=== PATIENT | female | born 1985 | race Asian ===

== ENCOUNTER 2017-04-22 12:30 | Inpatient (IN) | payer MEDICAID ==
[~2017-04-22] VITALS: Ht 162.6 cm; Wt 70.5 kg
[2017-04-22 12:53] VITALS: Ht 162.6 cm; Wt 70.5 kg
[2017-04-22 12:55] VITALS: BP 122/76; PULSE 76; RESP 20
[2017-04-22] MEDS ORDERED: LACTATED RINGER'S 1,000 ML IV PRN (16:15)
[2017-04-22] MEDS ORDERED: MISOPROSTOL 200 MCG TAB PR PRN (16:30)
[2017-04-22] MEDS ORDERED: OXYTOCIN 30 UNITS/LR 500 ML IV PRN (16:30)
[2017-04-22] MEDS ORDERED: BUTORPHANOL 2 MG INJ IV PRN (16:30)
[2017-04-22] MEDS ORDERED: OXYTOCIN 30 UNITS/LR 500 ML IV SCH ×3 (16:30→21:35)
[2017-04-22] MEDS ORDERED: METHYLERGONOVINE 0.2 MG INJ IM PRN (16:30)
[2017-04-22] MEDS ORDERED: LIDOCAINE 1% (MPF) 30 ML INJ INJ PRN (16:30)
[2017-04-22] MEDS ORDERED: CARBOPROST 250 MCG INJ IM PRN (16:30)
[2017-04-22] MEDS ORDERED: MINERAL OIL LIGHT 10 ML VIAL TOP ONE (16:30)
[2017-04-22] MEDS ORDERED: IBUPROFEN 600 MG TAB PO PRN (16:30)
[2017-04-22] MEDS: LACTATED RINGER'S 1,000 ML IV SCH ×2 (16:46→22:15)
--- NOTE | 2017-04-22 16:56 | RADRPT ---
PROCEDURE: US OB biophysical profile. CLINICAL INDICATION: decreased movements TECHNIQUE: Multiple sonographic images of the pelvis were obtained. The images were reviewed on a PACS workstation. COMPARISON: No prior studies are available for comparison. FINDINGS: There is a single viable intrauterine gestation. Cardiac activity is present with 140 beats per min quan. There is a vertex presentation. The placenta is anterior. There is no evidence of placental abruption. There is a slightly decreased amount of amniotic fluid with an BETTY = 7.5 cm. Biophysical profile: movement 2/2 tone 2/2. breathing 2/2 BETTY 2/2 Total 01/24 RPTAT: AA . IMPRESSION: Normal biophysical profile. Borderline decreased BETTY. . .Magdaleno Mcwilliams MD, Date Time Electronically viewed and signed by .Magdaleno Mcwilliams MD, MD on 04/22/2017 16:56 .S/
--- NOTE | 2017-04-22 16:57 | RADRPT ---
PROCEDURE: US OB. CLINICAL INDICATION: Size and dates TECHNIQUE: Multiple sonographic images of the pelvis and gravid uterus were obtained. The images were reviewed on a PACS workstation. COMPARISON: No prior studies are available for comparison. FINDINGS: There is a single viable intrauterine gestation. Cardiac activity is present with 176 beats per min quan. There is a vertex presentation. The placenta is anterior. There is no evidence of placental abruption. There is a slightly decreased amount of amniotic fluid with an BETTY = 7.5 cm. Measurements were made in order to determine age. The results are as follows: BPD =9.6 cm HC =33.6 cm AC =36.6 cm FL =7.7 cm Estimated gestational age of approximately 39 weeks and 3 days based on ultrasound measurements. Clinical age: 39 weeks and 3 days. The estimated date of delivery is 04/26/17, based on ultrasound measurements. The EFW = 3904 g, 80.7%, based on LMP age. RPTAT: AA IMPRESSION: Single viable intrauterine gestation of approximately 39 weeks and 3 days based on ultrasound measu rements. .Magdaleno Mcwilliams MD, Date Time Electronically viewed and signed by .Magdaleno Mcwilliams MD, on 04/22/2017 16:57 .S/
[2017-04-23] MEDS: LACTATED RINGER'S 1,000 ML IV SCH (04:55)
[2017-04-23] MEDS ORDERED: FENTAnyl 2MCG/ML-ROPIV 0.2% 100 ML ONE (07:47)
[2017-04-23] MEDS ORDERED: FENTAnyl 2MCG/ML-ROPIV 0.2% 100 ML BAG EPI SCH (09:00)
[2017-04-23] MEDS ORDERED: NALOXONE (0.4 MG/ML) INJ IV PRN (09:00)
--- NOTE | 2017-04-23 16:34 | HP ---
Date/Time of Note Date/Time of Note DATE: 04/23/17 TIME: 16:27 OB - History Hx of Present Free Text/Dictation 31 years old female admitted to [facility] at 39 weeks and 3 days with EDC April 26, 2017 in active labor pelvic examination on admission cervix 1 cm dilated 50% effaced vertex at -2 station, contraction 7-20 minutes apart moderate quality, category 1. heart tracing required labor augmentation Chief Complaint: Labor contraction Estimated Due Date: Apr 26, 2017 : 1 Para: 0 Care: Good Care Ultrasounds: Normal mid trimester US Obstetrical Complications: None Past Family/Social History * Past Medical, Surgical, Family and Obstetric Histories reviewed from chart. Blood Type: A+ Rubella: immune RPR/VDRL: Negative GBS Status: Negative HBsAG: Negative OB Admission Exam Vital Signs Vital Signs Vital Signs Date Time Temp Pulse Resp B/P Pulse Ox O2 Delivery O2 Flow Rate FiO2 04/22/17 12:55 98.0 76 20 122/76 97 Room Air Physical Exam HEENT: WNL Heart: Rhythm Normal Lungs: Clear, Equal Abdomen: WNL Extremities: Normal Cervical Dilatation: 1cm Effacement: 50% Station: -2 Membranes: Intact Heart Rate: 130's Accelerations: Accelerations Present Decelerations: No Decelerations Varibility: Moderate Contractions on Admission: >10 Minutes Apart Intensity: Moderate Last 72 hours Lab Results CBC & BMP 04/22/17 16:35 04/22/17 22:29 Liver Function Test 04/22/17 22:29 Alanine Aminotransferase (ALT/SGPT) 22 Albumin 3.3 Alkaline Phosphatase 171 H Aspartate Amino Transf (AST/SGOT) 17 Direct Bilirubin 0.00 Total Protein 6.5 OB Assessment/Plan Reason for admission: other (Term in labor) Other plan: 30 years old [place] female EDC April 26 admitted to [facility] in labor pelvic examination and admission cervix 1 cm dilated 50% effaced vertex at -2 station contractions every 7 minutes apart moderate quality requires labor augmentation. ISREAL HERNANDEZ MD Apr 23, 2017 16:34
--- NOTE | 2017-04-23 16:44 | LDN ---
Date/Time of Note Date/Time of Note DATE: 04/23/17 TIME: 16:34 Delivery Summary Normal spontaneous vaginal delivery of a baby girl from OA position shoulders delivered with no difficulty rest of the baby's body followed ,baby had nuchal cord 1 placenta spontaneous expulsion inspected complete blood loss 200 cc patient sustained small first-degree perineal laceration repaired with 3-0 chromic catgut, Weeks of Gestation 39 weeks 3 days Placenta Delivered: Spontaneously Meconium: none Episiotomy: No Laceration repair: First-degree perineal laceration repaired with 3-0 chromic catgut, and 4-0 chromic catgut Anesthesia type: Epidural Estimated blood loss: 200 Sponge & Needle done & correct: Yes All needle counts correct: Yes Any foreign bodies felt in the: No Problems: Infant Delivery Information Sex Infant Sex: female Apgars 1 Minute: 9 5 Minute: 9 Suctioning Nose & mouth suctioned at elly: Yes Delee suction performed: No Umbilical Cord Umbilical cord with: 3 Vessels Cord presentations: nuchal cord Nuchal cord present X: 1 Cord Blood was obtained: Yes ISREAL HERNANDEZ MD Apr 23, 2017 16:44
[2017-04-23 18:20] VITALS: BP 118/78; PULSE 112; RESP 20
[2017-04-23] MEDS ORDERED: OXYTOCIN 30 UNITS/LR 500 ML IV SCH (18:26)
[2017-04-23] MEDS ORDERED: HYDROCODONE/APAP (5/325) TAB PO PRN ×2 (18:30)
[2017-04-23] MEDS ORDERED: LANOLIN 7 GM TUBE TOP PRN (18:30)
[2017-04-23] MEDS: IBUPROFEN 600 MG TAB PO SCH (18:30)
[2017-04-23] MEDS ORDERED: OXYCODONE/ASPIRIN (4.88/325) TAB PO PRN ×2 (18:30)
[2017-04-23] MEDS ORDERED: WITCH HAZEL/GLYCERIN PAD PR PRN (18:30)
[2017-04-23] MEDS ORDERED: ONDANSETRON 4 MG INJ IV PRN (18:30)
[2017-04-23] MEDS ORDERED: ACETAMINOPHEN 325 MG TAB PO PRN (18:30)
[2017-04-23] MEDS ORDERED: BENZOCAINE 20% 56 ML SPRAY TOP PRN (18:30)
[2017-04-23] MEDS ORDERED: DIBUCAINE 1% 30 GM OINT PR PRN (18:30)
[2017-04-23 18:50] VITALS: BP 117/72; PULSE 99; RESP 20
[2017-04-23 20:00] VITALS: BP 124/67; PULSE 89; RESP 18
[2017-04-23] MEDS: SENNA/DOCUSATE NA (8.6MG/50MG) TAB PO SCH (21:12)
[2017-04-24] VITALS: BP 116/74; PULSE 86; RESP 16
[2017-04-24] MEDS: IBUPROFEN 600 MG TAB PO SCH ×5 (00:23→22:59)
[2017-04-24 04:00] VITALS: BP 115/68; PULSE 86; RESP 18
[2017-04-24 08:00] VITALS: BP 99/67; PULSE 91; RESP 17
[2017-04-24] MEDS: SENNA/DOCUSATE NA (8.6MG/50MG) TAB PO SCH ×2 (08:58→21:00)
--- NOTE | 2017-04-24 09:12 | QN ---
Documentation Comment Post normal vaginal delivery day 1 Afebrile vital signs are stable Abdomen soft uterus firm lochia normal extremity normal Plan of a.m. discharge discussed with the patient ISREAL HERNANDEZ MD Apr 24, 2017 09:12
[2017-04-24 16:00] VITALS: BP 111/59; PULSE 87; RESP 17
[2017-04-24 20:00] VITALS: BP 135/79; PULSE 87
[2017-04-25] MEDS: IBUPROFEN 600 MG TAB PO SCH ×2 (00:36→05:38)
[2017-04-25 04:00] VITALS: BP 110/67; PULSE 65
[2017-04-25 07:30] VITALS: BP 110/75; PULSE 79; RESP 16
[2017-04-25] MEDS: SENNA/DOCUSATE NA (8.6MG/50MG) TAB PO SCH (08:27)
[2017-04-25] MEDS ORDERED: MEASLES,MUMPS,RUBELLA VACCINE INJ SC* ONE (09:00)
--- NOTE | 2017-04-25 10:14 | DS ---
Date/Time of Note Date/Time of Note DATE: 04/25/17 TIME: 10:12 Discharge Summary Admission/Discharge Info Admit Date/Time Apr 22, 2017 at 16:25 Discharge Date/Time April 25, 2017 10 AM Discharge Diagnosis Post normal vaginal delivery day2 Patient Condition: Good Procedures Normal vaginal delivery Hx of Present Illness Term in labor Hospital Course Satisfactory uneventful Follow-up Plan instructions given recommended to make appointment to be seen at the office in 2 weeks Primary Care Provider Not On Staff Doctor Time spent on discharge: < 30 minutes ISREAL HERNANDEZ MD Apr 25, 2017 10:14
== END 2017-04-25 14:48 | disposition home or self-care (01) | DRG 775 ==
LOC: OBT 12:30 → L-D 12:32 → OBT 16:25 → L-D 16:25 → PP1 04-23 18:21
PROVIDERS: ADMIT Obstetrics & Gynecology; ATTEND Obstetrics & Gynecology
PROC: 10E0XZZ Delivery of Products of Conception, External Approach (ICD-10-PCS; principal; 2017-04-23)
PROC: 0HQ9XZZ Repair Perineum Skin, External Approach (ICD-10-PCS; 2017-04-23)
DX: O70.0 First degree perineal laceration during delivery (principal); O69.81X0 Labor and delivery complicated by cord around neck, without compression, not applicable or unspecified; Z37.0 Single live birth; Z3A.39 39 weeks gestation of pregnancy
CPT/HCPCS: 62319; 76815; 76818; 80053; 80307; 81001; 85025; 85384; 85610; 85730; 86592; 86900; 86901; 87340; G0463; J0595; J2590; J3010; J7120